=== PATIENT | female | born 1955 | race African-American/Black ===

== ENCOUNTER → 2021-05-27 | Outpatient (CLI) | payer OTHER ==
--- NOTE | 2021-05-27 12:23 | KCIC ---
RS Compliance Statement: One or more of the following individualized dose reduction techniques were utilized for this examinat ion: 1. Automated exposure control 2. Adjustment of the mA and/or kV according to patient size 3. Use of iterative reconstruction technique Coronary calcium score CT chest without contrast History: Mixed hyperlipidemia, family history of heart disease. Technique: With retrospective electrocardiogram gating axial reconstructed noncontrast images of the chest at the level of the coronary arteries was performed. Images were post processed on workstation and calcium score calculated using the modified Agatston Janowitz protocol. Findings: Total coronary calcium score is 83.6. This is a mild plaque burden and mild cardiovascular disease risk. This is based on the calcium score of 83.6 of the left main coronary artery, score of 0 of the left anterior descending artery, score of 0 of the left circumflex artery and score of 0 of the right coronary artery. Noncoronary findings demonstrate partially calcified right hilar lymph nodes. Great vessels are clair l caliber. Cardiac size is normal, no pericardial effusion. There is a moderate sized hiatal hernia. No pleural abnormality. There is a partially calcified granuloma in the anterior right upper lobe wit h several surrounding tiny satellite nodules. 2 additional tiny calcified granulomas are seen in the right upper lobe. Visualized lungs are otherwise clear. IMPRESSION: 1. Patient's total calcium score is 83.6. 2. Moderate-sized hiatal hernia. 3. Findings of remote granulomatous infection. Electronically signed by: Houston Escobar MD (05/27/2021 12:20 PM) [id number]
== END ==
LOC: KCIC CT 10:58
PROVIDERS: ATTEND Nurse Practitioner Family
DX: I25.10 Atherosclerotic heart disease of native coronary artery without angina pectoris (principal); E78.2 Mixed hyperlipidemia; K44.1 Diaphragmatic hernia with gangrene; J84.10 Pulmonary fibrosis, unspecified; R91.8 Other nonspecific abnormal finding of lung field
CPT/HCPCS: 75571